=== PATIENT | male | born 1985 | race Caucasian/White ===

== ENCOUNTER 2017-10-23 23:31 | Emergency (ER) | payer OTHER ==
[~2017-10-23] VITALS: Ht 172.7 cm; Wt 77.1 kg
[~2017-10-23 23:31] MED LIST: ALBU90OI INH; AZIT250 PO; Amoxicillin500 M1 PO; Bactrim Ds Tab1 EACH PO; DOXY100 PO; HYDACE10B PO; HYDACE5 PO; HYDR1TAB94 PO; IBUP800 PO; Keflex500 MG PO; LATUDA40 MG PO; NAPR500 PO; PRED20 PO; Percocet 5-3251 EACH PO; Peridex480 ML PO; Prednisone20 MG PO; SPACE CHAMBER1 EACH MC; TOBR.3OPSO OP; TRAM50 PO; Zovirax800 MG PO
[2017-10-23] MEDS ORDERED: ZYPREXA (23:45)
[2017-10-24] MEDS ORDERED: IBUP600 PO (00:44)
== END 2017-10-24 01:00 | disposition home or self-care (01) ==
LOC: ER 23:31
DX: S02.40CA Maxillary fracture, right side, initial encounter for closed fracture (principal); S01.111A Laceration without foreign body of right eyelid and periocular area, initial encounter; F17.210 Nicotine dependence, cigarettes, uncomplicated; Y04.2XXA Assault by strike against or bumped into by another person, initial encounter
CPT/HCPCS: 12011; 70450; 90714; 99284

== ENCOUNTER 2018-04-13 10:51 | Emergency (ER) | payer OTHER ==
[~2018-04-13] VITALS: Ht 180.3 cm; Wt 81.7 kg
[~2018-04-13 10:51] MED LIST changes: +IBUP600 PO; +ZYPREXA
[2018-04-13 11:51] LABS: BASOPHILS ABSOLUTE AUTO 0.04 K/mm3 (0.00-0.23); BASOPHILS PERCENT AUTO 0 % (0-2); EOSINOPHILS ABSOLUTE AUTO 0.04 K/mm3 (0.00-0.68); EOSINOPHILS PERCENT AUTO 0 % (0-6); Hematocrit 38.7 % (37.0-53.0); Hemoglobin 13.3 g/dL (13.5-17.5); IMMATURE GRAN ABSOLUTE AUTO 0.04 K/mm3 (0.00-0.10); IMMATURE GRAN PERCENT AUTO 0 % (0-1); LYMPHOCYTES ABSOLUTE AUTO 2.37 K/mm3 (0.84-5.20); LYMPHOCYTES PERCENT AUTO 17 % (21-46); MONOCYTES PERCENT AUTO 9 % (4-13); Mean Corpuscular HGB 29.9 pg (26.0-34.0); Mean Corpuscular HGB Conc 34.4 g/dL (31.5-36.5); Mean Corpuscular Volume 87 fL (80-100); Mean Platelet Volume 9.2 fL (9.1-12.4); NEUTROPHILS ABSOLUTE AUTO 10.42 K/mm3 (1.96-9.15); NEUTROPHILS PERCENT AUTO 73 % (41-73); Platelet Count 298 K/mm3 (150-400); RDW Coefficient Variation 13.2 % (11.7-14.2); RDW Standard Deviation 41.3 fL (35.1-46.3); Red Blood Cell Count 4.45 M/mm3 (4.30-5.90); White Blood Cell Count 14.21 K/mm3 (4.00-11.30)
[2018-04-13 12:20] LABS: Alanine Aminotransfer (ALT/SGP 314 U/L (12-78); Albumin, Blood 4.1 g/dL (3.4-5.0); Albumin/Globulin Ratio 1.1 (0.8-1.8); Alk Phos 58 U/L (50-136); Anion Gap 9 mmol/L (6-16); Aspartate Aminotrans (AST/SGOT 142 U/L (12-37); Bilirubin, Total 0.4 mg/dL (0.1-1.0); Blood Urea Nitrogen 18 mg/dL (8-24); Bun/Creatinine Ratio 26.8 (12.0-20.0); CO2, Blood 26 mmol/L (21-32); Calcium, Blood 8.7 mg/dL (8.5-10.1); Chloride, Blood 104 mmol/L (98-108); Creatinine, Blood 0.67 mg/dL (0.60-1.20); Globulin, Blood 3.6 g/dL (2.2-4.0); Glomerular Filtration Rate >60 (60-); Glucose, Blood 96 mg/dL (70-99); Potassium, Blood 3.8 mmol/L (3.5-5.5); Sodium, Blood 139 mmol/L (136-145); Total Protein, Blood 7.7 g/dL (6.4-8.2); Troponin I <0.015 ng/mL (0.000-0.040)
[2018-04-13] MEDS ORDERED: IBUP400 PO (14:20)
== END 2018-04-13 14:58 | disposition home or self-care (01) ==
LOC: ER 10:51
PROVIDERS: Emergency Medicine
DX: R07.9 Chest pain, unspecified (principal); F17.210 Nicotine dependence, cigarettes, uncomplicated
CPT/HCPCS: 36415; 71046; 80053; 84484; 85025; 93005; 93010; 99284-25

== ENCOUNTER 2018-09-28 19:05 | Emergency (ER) | payer OTHER ==
[~2018-09-28] VITALS: Ht 180.3 cm; Wt 80.7 kg
[~2018-09-28 19:05] MED LIST changes: +IBUP400 PO
[2018-09-28] MEDS ORDERED: MIRT15 PO (19:53)
[2018-09-28] MEDS ORDERED: LATUDA60 MG PO (19:53)
== END 2018-09-28 20:51 | disposition home or self-care (01) ==
LOC: ER 19:05
DX: S69.92XA Unspecified injury of left wrist, hand and finger(s), initial encounter (principal); Z79.899 Other long term (current) drug therapy; F17.210 Nicotine dependence, cigarettes, uncomplicated; W17.89XA Other fall from one level to another, initial encounter
CPT/HCPCS: 29125; 73110; 99283-25

== ENCOUNTER 2023-01-21 18:33 | Emergency (ER) | payer OTHER ==
[~2023-01-21] VITALS: Ht 180.3 cm; Wt 74.8 kg
[~2023-01-21 18:33] MED LIST changes: +LATUDA60 MG PO; +MIRT15 PO; +Naltrexone HCl50 MG; +OLANZAPINE1022
[2023-01-21 18:41] VITALS: BP 128/94
[2023-01-21] MEDS ORDERED: CEPH500 PO (18:45)
== END 2023-01-21 18:46 | disposition home or self-care (01) ==
LOC: ER 18:33
DX: L98.499 Non-pressure chronic ulcer of skin of other sites with unspecified severity (principal); L03.90 Cellulitis, unspecified; F17.210 Nicotine dependence, cigarettes, uncomplicated
CPT/HCPCS: 99282

== ENCOUNTER 2023-07-10 15:18 | Emergency (ER) | payer OTHER ==
[~2023-07-10] VITALS: Ht 180.3 cm; Wt 79.4 kg
[~2023-07-10 15:18] MED LIST changes: +CEPH500 PO
[2023-07-10 15:36] VITALS: BP 144/89
[2023-07-10] MEDS ORDERED: AMOCLA875 PO (15:52)
== END 2023-07-10 15:43 | disposition home or self-care (01) ==
LOC: ER 15:18
DX: K04.7 Periapical abscess without sinus (principal); F17.210 Nicotine dependence, cigarettes, uncomplicated
CPT/HCPCS: 99282

== ENCOUNTER 2023-09-20 13:33 | Emergency (ER) | payer OTHER ==
[~2023-09-20] VITALS: Ht 180.3 cm; Wt 79.4 kg
[~2023-09-20 13:33] MED LIST changes: +AMOCLA875 PO
[2023-09-20 13:39] VITALS: BP 132/71
[2023-09-20 14:38] LABS: Influenza B, PCR NEGATIVE (NEGATIVE); Resp Syncytial Virus, PCR NEGATIVE (NEGATIVE); SARS-Cov-2 (COVID-19) PCR, MMC NEGATIVE (NEGATIVE)
[2023-09-20 15:14] LABS: Influenza A, PCR POSITIVE (NEGATIVE)
== END 2023-09-20 15:49 | disposition home or self-care (01) ==
LOC: ER 13:33
PROVIDERS: Physician Assistant
DX: J10.1 Influenza due to other identified influenza virus with other respiratory manifestations (principal); Z20.822 Contact with and (suspected) exposure to COVID-19; F17.210 Nicotine dependence, cigarettes, uncomplicated
CPT/HCPCS: 0241U; 99283; A9270

== ENCOUNTER 2023-10-02 12:11 | Emergency (ER) | payer OTHER ==
[~2023-10-02] VITALS: Ht 180.3 cm; Wt 79.4 kg
[2023-10-02 13:23] VITALS: BP 140/109
[2023-10-02 14:48] LABS: Albumin, Blood 3.5 g/dL (3.4-5.0); Albumin/Globulin Ratio 0.9 (0.8-1.8); Bilirubin, Total 0.4 mg/dL (0.1-1.0); Bun/Creatinine Ratio 20.3 (12.0-20.0); Calcium, Blood 9.4 mg/dL (8.5-10.1); Creatinine, Blood 0.54 mg/dL (0.60-1.20); Globulin, Blood 3.8 g/dL (2.2-4.0); Potassium, Blood 3.9 mmol/L (3.5-5.5); Total Protein, Blood 7.3 g/dL (6.4-8.2)
[2023-10-02 15:10] LABS: BASOPHILS ABSOLUTE AUTO 0.02 K/mm3 (0.00-0.23); BASOPHILS PERCENT AUTO 0 % (0-2); EOSINOPHILS ABSOLUTE AUTO 0.08 K/mm3 (0.00-0.68); EOSINOPHILS PERCENT AUTO 1 % (0-6); Hematocrit 37.5 % (37.0-53.0); Hemoglobin 13.3 g/dL (13.5-17.5); IMMATURE GRAN ABSOLUTE AUTO 0.05 K/mm3 (0.00-0.10); IMMATURE GRAN PERCENT AUTO 0 % (0-1); LYMPHOCYTES ABSOLUTE AUTO 2.26 K/mm3 (0.84-5.20); LYMPHOCYTES PERCENT AUTO 16 % (21-46); MONOCYTES ABSOLUTE AUTO 1.68 K/mm3 (0.16-1.47); MONOCYTES PERCENT AUTO 12 % (4-13); Mean Corpuscular HGB 29.3 pg (26.0-34.0); Mean Corpuscular HGB Conc 35.5 g/dL (31.5-36.5); Mean Corpuscular Volume 83 fL (80-100); Mean Platelet Volume 8.6 fL (9.1-12.4); NEUTROPHILS ABSOLUTE AUTO 9.69 K/mm3 (1.96-9.15); NEUTROPHILS PERCENT AUTO 70 % (41-73); Platelet Count 539 K/mm3 (150-400); RDW Coefficient Variation 12.6 % (11.7-14.2); RDW Standard Deviation 38.2 fL (35.1-46.3); Red Blood Cell Count 4.54 M/mm3 (4.30-5.90); White Blood Cell Count 13.78 K/mm3 (4.00-11.30)
[2023-10-02] MEDS ORDERED: ONDA4ODT MM (16:26)
== END 2023-10-02 17:15 | disposition home or self-care (01) ==
LOC: ER 12:11
PROVIDERS: Emergency Medicine; Physician Assistant
DX: J10.1 Influenza due to other identified influenza virus with other respiratory manifestations (principal); F17.210 Nicotine dependence, cigarettes, uncomplicated
CPT/HCPCS: 80053; 85025; 96361; 96374; 96375; 99284-25; J1885; J2405; J7030

== ENCOUNTER 2024-09-07 00:02 | Emergency (ER) | payer OTHER ==
[~2024-09-07] VITALS: Ht 180.3 cm; Wt 81.7 kg
[~2024-09-07 00:02] MED LIST changes: +ONDA4ODT MM
[2024-09-07 00:12] VITALS: BP 129/74
[2024-09-07] MEDS ORDERED: IBUP800 PO (00:52)
[2024-09-07] MEDS ORDERED: Ketorolac Tromethamine 30mg Vial IM ONE (00:55)
== END 2024-09-08 01:05 | disposition home or self-care (01) ==
LOC: ER 00:02
DX: S63.502A Unspecified sprain of left wrist, initial encounter (principal); W19.XXXA Unspecified fall, initial encounter
CPT/HCPCS: 73110; 96372; 99283-25; J1885; L3917